=== PATIENT | male | born 1945 | race Caucasian/White ===

== ENCOUNTER 2016-04-28 10:26 | Day surgery (SDC) | payer MEDICARE, OTHER ==
[2016-04-28] VITALS (8 sets, daily range): BP systolic 99–186; BP diastolic 46–73; PULSE 51–67; TEMP 97.5–98
[~2016-04-28] VITALS: Ht 175.3 cm; Wt 96.3 kg
[2016-04-28] MEDS ORDERED: DIABETA 5MG5 MG/TAB PO (10:57)
[2016-04-28] MEDS ORDERED: ACTOS 15MG TAB15 MG PO (10:57)
[2016-04-28] MEDS ORDERED: UROXATRAL10 M1 PO (10:59)
[2016-04-28] MEDS ORDERED: TIAZAC180 MG PO (10:59)
[2016-04-29 02:13] VITALS: BP 149/63; PULSE 77; TEMP 98.7
[2016-04-29 06:09] LABS: HEMATOCRIT 45.1 % (42.0-52.0); HEMOGLOBIN 14.9 g/dl (13.5-18.0); MEAN CELL VOLUME 96 fl (80.0-100.0); MEAN CORPUSCULAR HEMOGLOBIN 32 pg (27.0-31.0); MEAN CORPUSCULAR HGB CONC 33 g/dl (33.0-37.0); MEAN PLATELET VOLUME 10.3 fl (7.4-10.4); PLATELET COUNT 169 K/mm3 (130-400); RED BLOOD COUNT 4.71 M/mm3 (4.20-5.60); REDCELL DISTRIBUTION WIDTH-CV 13.8 % (11.5-14.5); WHITE BLOOD COUNT 12.5 K/mm3 (4.8-10.8)
[2016-04-29 08:56] VITALS: BP 156/68; PULSE 77; TEMP 98.5
[2016-04-29 14:04] VITALS: BP 147/90; PULSE 91; TEMP 98.4
[2016-04-29] MEDS ORDERED: NORCO 325 MG-51 TAB PO (18:16)
[2016-04-29] MEDS ORDERED: PYRIDIUM 100MG100 MG PO (18:17)
== END 2016-04-29 18:30 | disposition home or self-care (01) ==
LOC: SDCO 10:26 → SURG 14:57 → SDCO 04-29 18:30
PROVIDERS: Urology
DX: N40.1 Benign prostatic hyperplasia with lower urinary tract symptoms (principal); R39.12 Poor urinary stream; N39.41 Urge incontinence; E11.9 Type 2 diabetes mellitus without complications; I10 Essential (primary) hypertension; E78.00 Pure hypercholesterolemia, unspecified; N28.1 Cyst of kidney, acquired; Z79.899 Other long term (current) drug therapy; Z79.84 Long term (current) use of oral hypoglycemic drugs; Z87.891 Personal history of nicotine dependence; Z87.440 Personal history of urinary (tract) infections
CPT/HCPCS: OP; J0690; J2250; J2704; J3010; J7030